=== PATIENT | female | born 1985 | race African-American/Black ===

== ENCOUNTER 2018-01-09 15:59 | Inpatient (IN) ==
[2018-01-09] MEDS ORDERED: LACTATED RINGERS 500 ML IV PRN (16:50)
[2018-01-09] MEDS ORDERED: LACTATED RINGERS 250 ML IV ONE (16:50)
[2018-01-09] MEDS ORDERED: ONDANSETRON 4 MG/2 ML VIAL IV PRN (16:50)
[2018-01-09] MEDS ORDERED: LACTATED RINGERS 1,000 ML IV SCH (17:00)
[2018-01-09] MEDS: OXYTOCIN/LR 20 UNIT/1,000 ML BAG IV SCH (17:07)
[2018-01-09] MEDS: AMPICILLIN INJ 2,000 MG in SODIUM CHLORIDE 0.9% 100 ML IV SCH ×2 (17:25→23:15)
[2018-01-09 17:40] LABS: Basophils % 0.4 % (0.0-0.8); Eosinophils # 0.1 10*3/uL (0.0-0.87); Eosinophils % 0.9 % (0.00-10.9); Hematocrit 30.8 VOL% (35.7-47.0); Hemoglobin 10.6 GM/DL (12.0-16.0); Immature Granulocytes % 0.4 %; Immature Granulocytes Absolute 0.03 #; Lymphocytes # 1.4 10*3/uL (1.4-4.0); Lymphocytes % 18.4 % (21.3-54.2); Mean Corpuscular HGB Conc 34.4 GM/DL (32-36); Mean Corpuscular Hemoglobin 28 PG (27-34); Mean Corpuscular Volume 82.6 FL (87-102); Monocytes # 0.5 10*3/uL (0.11-0.8); Monocytes % 6.9 % (1.7-12.7); Neutrophils # 5.5 10*3/uL (1.4-7.4); Platelet Count 256 T/CUMM (130-400); Red Blood Count 3.73 MC/CUMM (3.8-5.5); Red Cell Distribution Width 13.6 % (9.3-17.3); White Blood Count 7.6 T/CUMM (4-12)
[2018-01-09 18:18] LABS: Alanine Aminotransferase 32 U/L (13-56); Albumin 2.5 G/DL (3.4-5.0); Alkaline Phosphatase 183 U/L (45-117); Aspartate Amino Transferase 36 U/L (0-37); Bilirubin,Total < 0.39 MG/DL (0.2-1.0); Blood Urea Nitrogen 8 MG/DL (7-18); Glucose 84 MG/DL (74-106); Osmolality,Calculated 266.1 MOS/KG (273-304); Potassium 4.3 MMOL/L (3.5-5.1); Sodium 135 MMOL/L (136-145); Total Protein 7.2 G/DL (6.4-8.3); Uric Acid 5.7 MG/DL (2.6-6.0)
[2018-01-09 18:21] LABS: INR 0.9; PT Patient Result 9.4 SECS; Partial Thromboplastin Time 25.2 SECS (0-40)
[2018-01-09] MEDS: LABETALOL 100 MG TABLET PO SCH (20:35)
[2018-01-09] MEDS: BUTORPHANOL 2 MG/ML VIAL IV PRN (20:37)
[2018-01-09] MEDS ORDERED: LABETALOL 100 MG TABLET PO SCH (22:00)
[2018-01-09] MEDS ORDERED: LABETALOL 100 MG TABLET PO ONE (22:04)
[2018-01-10] MEDS: BUTORPHANOL 2 MG/ML VIAL IV PRN (00:56)
[2018-01-10] MEDS ORDERED: LIDOCAINE 1% 50 ML VIAL ONE (01:02)
[2018-01-10] MEDS ORDERED: miSOPROStol 200 MCG TABLET ONE (01:03)
[2018-01-10] MEDS ORDERED: CARBOPROST TROMETHAMINE 250 MCG/ML AMP IM ONE (01:03)
[2018-01-10] MEDS ORDERED: diphenhydrAMINE 50 MG/1 ML VIAL IV ONE (04:34)
[2018-01-10] MEDS ORDERED: WITCH HAZEL PADS 100/JAR TOP PRN (05:53)
[2018-01-10] MEDS ORDERED: DIPH/TET/ACEL PERT BOOSTER VACCINE 0.5 ML VIAL IM ONE (05:53)
[2018-01-10] MEDS ORDERED: BISACODYL 10 MG SUPP RECTAL PRN (05:53)
[2018-01-10] MEDS ORDERED: OXYTOCIN/LR 20 UNIT/1,000 ML BAG IV ONE (05:53)
[2018-01-10] MEDS ORDERED: LANOLIN 50% CREAM 0.3 OZ TUBE TOP PRN (05:53)
[2018-01-10] MEDS ORDERED: MEASLES/MUMPS/RUBELLA VACCINE 0.5 ML VIAL SUBCUT ONE (05:53)
[2018-01-10] MEDS ORDERED: ONDANSETRON 4 MG/2 ML VIAL IV PRN (05:53)
[2018-01-10] MEDS ORDERED: HYDROCORTISONE 2.5% RECTAL CREAM 30 GM TUBE TOP PRN (05:53)
[2018-01-10] MEDS ORDERED: ACETAMINOPHEN 325 MG TABLET PO PRN (05:53)
[2018-01-10] MEDS ORDERED: BENZOCAINE 20%/MENTHOL 0.5% SPRAY 56 GM CAN TOP PRN (05:53)
[2018-01-10] MEDS ORDERED: RHO(D) IMMUNE GLOBULIN 300 MCG SYRINGE IM ONE (05:53)
[2018-01-10] MEDS ORDERED: oxyCODONE/ACETAMINOPHEN 5-325 MG TABLET PO PRN (05:53)
[2018-01-10] MEDS: OXYTOCIN/LR 20 UNIT/1,000 ML BAG IV SCH (06:34)
[2018-01-10] MEDS: LABETALOL 100 MG TABLET PO SCH ×2 (09:07→20:46)
[2018-01-10] MEDS: IBUPROFEN 800 MG TABLET PO PRN ×2 (09:11→22:39)
[2018-01-10] MEDS ORDERED: LABETALOL 100 MG TABLET PO SCH (10:46)
[2018-01-10] MEDS: DOCUSATE SODIUM 100 MG CAPSULE PO SCH (20:46)
[2018-01-10] MEDS: oxyCODONE/ACETAMINOPHEN 5-325 MG TABLET PO PRN (22:40)
[2018-01-11] MEDS: IBUPROFEN 800 MG TABLET PO PRN ×3 (05:54→22:00)
[2018-01-11 06:53] LABS: Basophils % 0.3 % (0.0-0.8); Eosinophils # 0.1 10*3/uL (0.0-0.87); Eosinophils % 0.4 % (0.00-10.9); Hematocrit 22.3 VOL% (35.7-47.0); Immature Granulocytes % 0.5 %; Immature Granulocytes Absolute 0.08 #; Lymphocytes # 3.1 10*3/uL (1.4-4.0); Lymphocytes % 20.9 % (21.3-54.2); Mean Corpuscular HGB Conc 33.6 GM/DL (32-36); Mean Corpuscular Hemoglobin 29 PG (27-34); Mean Corpuscular Volume 84.8 FL (87-102); Mean Platelet Volume 12.1 FL (9.6-12.0); Monocytes # 0.9 10*3/uL (0.11-0.8); Monocytes % 6.3 % (1.7-12.7); Neutrophils # 10.5 10*3/uL (1.4-7.4); Neutrophils % 71.6 % (38.7-73.9); Platelet Count 226 T/CUMM (130-400); Red Cell Distribution Width 14.4 % (9.3-17.3)
[2018-01-11 06:56] LABS: White Blood Count 14.7 T/CUMM (4-12)
[2018-01-11 06:57] LABS: Hemoglobin 7.5 GM/DL (12.0-16.0); Red Blood Count 2.63 MC/CUMM (3.8-5.5)
[2018-01-11 07:13] LABS: Band Neutrophils 2 % (0-10); Lymphocytes 21 % (20-55); Platelet Estimate Normal; Segmented Neutrophils 73 % (50-85); Total Cells Counted 100
[2018-01-11] MEDS: FERROUS SULFATE 325 MG TABLET PO SCH ×2 (09:25→21:59)
[2018-01-11] MEDS: LABETALOL 100 MG TABLET PO SCH ×2 (09:25→22:00)
[2018-01-11] MEDS: DOCUSATE SODIUM 100 MG CAPSULE PO SCH ×2 (09:25→21:59)
[2018-01-11 11:47] LABS: Immature Granulocytes Absolute 0.07 #; Red Cell Distribution Width 14.2 % (9.3-17.3)
[2018-01-11 12:48] LABS: Basophils % 0.3 % (0.0-0.8); Eosinophils % 0.3 % (0.00-10.9); Hematocrit 21.8 VOL% (35.7-47.0); Hemoglobin 7.1 GM/DL (12.0-16.0); Immature Granulocytes % 0.6 %; Lymphocytes # 2.5 10*3/uL (1.4-4.0); Lymphocytes % 20.2 % (21.3-54.2); Mean Corpuscular HGB Conc 32.6 GM/DL (32-36); Mean Corpuscular Hemoglobin 28 PG (27-34); Mean Corpuscular Volume 86.9 FL (87-102); Mean Platelet Volume 11.2 FL (9.6-12.0); Monocytes # 0.7 10*3/uL (0.11-0.8); Monocytes % 5.4 % (1.7-12.7); Neutrophils # 9.1 10*3/uL (1.4-7.4); Neutrophils % 73.2 % (38.7-73.9); Platelet Count 215 T/CUMM (130-400); Red Blood Count 2.51 MC/CUMM (3.8-5.5); White Blood Count 12.4 T/CUMM (4-12)
[2018-01-12] MEDS: oxyCODONE/ACETAMINOPHEN 5-325 MG TABLET PO PRN (04:11)
[2018-01-12 06:51] LABS: Basophils # 0.1 10*3/uL (0.0-0.2); Basophils % 0.5 % (0.0-0.8); Eosinophils # 0.1 10*3/uL (0.0-0.87); Eosinophils % 1.3 % (0.00-10.9); Hematocrit 22.1 VOL% (35.7-47.0); Hemoglobin 7.2 GM/DL (12.0-16.0); Immature Granulocytes % 0.7 %; Immature Granulocytes Absolute 0.07 #; Lymphocytes # 2.6 10*3/uL (1.4-4.0); Lymphocytes % 25.4 % (21.3-54.2); Mean Corpuscular HGB Conc 32.6 GM/DL (32-36); Mean Corpuscular Hemoglobin 29 PG (27-34); Mean Corpuscular Volume 88.8 FL (87-102); Mean Platelet Volume 11.5 FL (9.6-12.0); Monocytes # 0.8 10*3/uL (0.11-0.8); Monocytes % 7.4 % (1.7-12.7); NRBC # 0.02 10*3/uL; Neutrophils # 6.6 10*3/uL (1.4-7.4); Neutrophils % 64.7 % (38.7-73.9); Platelet Count 217 T/CUMM (130-400); Red Blood Count 2.49 MC/CUMM (3.8-5.5); Red Cell Distribution Width 14.2 % (9.3-17.3); White Blood Count 10.2 T/CUMM (4-12)
[2018-01-12] MEDS: FERROUS SULFATE 325 MG TABLET PO SCH (08:59)
[2018-01-12] MEDS: LABETALOL 100 MG TABLET PO SCH (09:00)
[2018-01-12] MEDS: IBUPROFEN 800 MG TABLET PO PRN (09:01)
[2018-01-12] MEDS: DOCUSATE SODIUM 100 MG CAPSULE PO SCH (09:01)
[2018-01-12 12:33] VITALS: BP 119/75
== END 2018-01-12 14:30 | disposition home or self-care (01) | DRG 774 ==
LOC: N.LAB 15:59 → N.LD 16:09 → N.OB 01-10 10:25
PROVIDERS: ADMIT Specialist; ATTEND Specialist

== ENCOUNTER 2021-12-20 09:23 | Inpatient (IN) ==
[2021-12-20] MEDS ORDERED: FAMOTIDINE 20 MG/2 ML VIAL IV ONE (09:36)
[2021-12-20] MEDS ORDERED: OXYTOCIN/LR 20 UNIT/1,000 ML BAG IV ONE ×2 (09:36→11:27)
[2021-12-20] MEDS ORDERED: miSOPROStoL 200 MCG TABLET PO PRN (09:36)
[2021-12-20] MEDS ORDERED: ceFAZolin 3,000 MG in SYRINGE 1 EACH IV ONE (09:36)
[2021-12-20] MEDS ORDERED: CITRIC ACID/SODIUM CITRATE 30 ML UDCUP PO ONE (09:36)
[2021-12-20] MEDS ORDERED: TRANEXAMIC ACID 1,000 MG in SODIUM CHLORIDE 0.9% 100 ML IV PRN (09:36)
[2021-12-20] MEDS ORDERED: METHYLERGONOVINE 0.2 MG/1 ML AMP IM PRN (09:36)
[2021-12-20] MEDS ORDERED: CARBOPROST TROMETHAMINE 250 MCG/ML AMP IM PRN (09:36)
[2021-12-20] MEDS ORDERED: OXYTOCIN 10 UNIT/ML VIAL IM ONE (09:37)
[2021-12-20] MEDS ORDERED: OXYTOCIN/LR 30 UNIT/1,000 ML BAG IV ONE (09:37)
[2021-12-20] MEDS ORDERED: BUPIVACAINE SPINAL 0.75% 2 ML AMP SPINAL ONE (09:40)
[2021-12-20] MEDS ORDERED: buprenorphine HCL 0.3 MG/ML VIAL ONE (09:40)
[2021-12-20] MEDS ORDERED: miSOPROStoL 200 MCG TABLET ONE (09:51)
[2021-12-20 09:52] LABS: Basophils % 0.4 % (0.0-0.8); Eosinophils # 0.1 10*3/uL (0.0-0.87); Eosinophils % 1.2 % (0.00-10.9); Hematocrit 35.2 VOL% (35.7-47.0); Hemoglobin 11.8 GM/DL (12.0-16.0); Immature Granulocytes % 1.1 %; Immature Granulocytes Absolute 0.08 #; Lymphocytes # 1.7 10*3/uL (1.4-4.0); Lymphocytes % 23.2 % (21.3-54.2); Mean Corpuscular HGB Conc 33.5 GM/DL (32-36); Mean Corpuscular Volume 84.8 FL (87-102); Monocytes # 0.6 10*3/uL (0.11-0.8); Neutrophils % 66.1 % (38.7-73.9); Platelet Count 254 T/CUMM (130-400); Red Blood Count 4.15 MC/CUMM (3.8-5.5); Red Cell Distribution Width 13.9 % (9.3-17.3); White Blood Count 7.3 T/CUMM (4-12)
[2021-12-20] MEDS ORDERED: METHYLERGONOVINE 0.2 MG/1 ML AMP ONE (09:52)
[2021-12-20] MEDS ORDERED: CARBOPROST TROMETHAMINE 250 MCG/ML AMP IM ONE (09:52)
[2021-12-20] MEDS ORDERED: LACTATED RINGERS 1,000 ML IV SCH ×2 (10:00→11:30)
[2021-12-20 10:10] LABS: Alanine Aminotransferase 30 U/L (13-56); Albumin 2.3 G/DL (3.4-5.0); Alkaline Phosphatase 219 U/L (45-117); Aspartate Amino Transferase 37 U/L (0-37); Bilirubin,Total < 0.39 MG/DL (0.20-1.00); Blood Urea Nitrogen 8 MG/DL (7-18); Calcium 9.4 MG/DL (8.5-10.1); Carbon Dioxide 21 MMOL/L (21-32); Chloride 107 MMOL/L (98-107); Glucose 108 MG/DL (74-106); Osmolality,Calculated 275.5 MOS/KG (273-304); Potassium 4.1 MMOL/L (3.5-5.1); Sodium 139 MMOL/L (136-145); Total Protein 7.2 G/DL (6.4-8.2)
[2021-12-20] MEDS ORDERED: fentaNYL 100 MCG/2 ML VIAL ONE ×2 (10:11→10:32)
[2021-12-20] MEDS ORDERED: SUCCINYLCHOLINE 200 MG/10 ML VIAL ONE (10:11)
[2021-12-20] MEDS ORDERED: propofoL 200 MG/20 ML VIAL IV ONE (10:11)
[2021-12-20] MEDS ORDERED: PHENYLEPHRINE 1 MG/10 ML SYRINGE IV ONE (10:27)
[2021-12-20] MEDS ORDERED: ONDANSETRON 4 MG/2 ML VIAL ONE (10:27)
[2021-12-20] MEDS ORDERED: SEVOFLURANE 1 UNIT/15 MINUTE INH ONE (10:27)
[2021-12-20 11:16] LABS: Cord Arterial Blood HCO3 27.3 MMOL/L
[2021-12-20 11:19] LABS: Cord Venous Blood PCO2 58.1 MMHG
[2021-12-20 11:20] LABS: Cord Venous Blood HCO3 24.9 MMOL/L
[2021-12-20] MEDS ORDERED: HYDROmorphone 1 MG/1 ML SYRINGE IV PRN ×2 (11:20→17:35)
[2021-12-20] MEDS ORDERED: ACETAMINOPHEN 325 MG TABLET PO PRN (11:27)
[2021-12-20] MEDS ORDERED: ONDANSETRON 4 MG/2 ML VIAL IV PRN (11:27)
[2021-12-20] MEDS ORDERED: RHO(D) IMMUNE GLOBULIN 300 MCG SYRINGE IM ONE (11:27)
[2021-12-20] MEDS ORDERED: HYDROmorphone 1 MG/1 ML SYRINGE IV ONE (12:38)
[2021-12-20] MEDS ORDERED: NIFEdipine 10 MG CAPSULE PO ONE ×2 (12:58→13:26)
[2021-12-20 13:55] LABS: Hematocrit 32.5 VOL% (35.7-47.0); Hemoglobin 10.8 GM/DL (12.0-16.0)
[2021-12-20] MEDS ORDERED: HYDROmorphone 1 MG/1 ML SYRINGE SUBCUT PRN (17:19)
[2021-12-20] MEDS: ceFAZolin 2,000 MG/50 ML DUPLEX IV SCH (17:43)
[2021-12-20 18:03] LABS: Basophils % 0.2 % (0.0-0.8); Eosinophils % 0.1 % (0.00-10.9); Hematocrit 31.5 VOL% (35.7-47.0); Hemoglobin 10.4 GM/DL (12.0-16.0); Immature Granulocytes % 0.7 %; Immature Granulocytes Absolute 0.09 #; Lymphocytes # 1.4 10*3/uL (1.4-4.0); Lymphocytes % 10.3 % (21.3-54.2); Mean Corpuscular Volume 86.5 FL (87-102); Mean Platelet Volume 12.1 FL (9.6-12.0); Monocytes # 0.9 10*3/uL (0.11-0.8); Monocytes % 6.4 % (1.7-12.7); Neutrophils % 82.3 % (38.7-73.9); Platelet Count 242 T/CUMM (130-400); Red Blood Count 3.64 MC/CUMM (3.8-5.5); Red Cell Distribution Width 13.7 % (9.3-17.3); White Blood Count 13.8 T/CUMM (4-12)
[2021-12-20] MEDS: DOCUSATE SODIUM 100 MG CAPSULE PO SCH (21:38)
[2021-12-21] MEDS: ceFAZolin 2,000 MG/50 ML DUPLEX IV SCH (01:37)
[2021-12-21] MEDS: IBUPROFEN 800 MG TABLET PO PRN ×3 (02:44→23:34)
[2021-12-21 06:31] LABS: Basophils % 0.2 % (0.0-0.8); Eosinophils % 0.3 % (0.00-10.9); Hematocrit 28.2 VOL% (35.7-47.0); Hemoglobin 9.4 GM/DL (12.0-16.0); Immature Granulocytes % 0.5 %; Immature Granulocytes Absolute 0.05 #; Lymphocytes # 1.5 10*3/uL (1.4-4.0); Lymphocytes % 14.7 % (21.3-54.2); Mean Corpuscular HGB Conc 33.3 GM/DL (32-36); Mean Corpuscular Volume 87.3 FL (87-102); Mean Platelet Volume 11.9 FL (9.6-12.0); Monocytes # 0.8 10*3/uL (0.11-0.8); Monocytes % 7.3 % (1.7-12.7); Platelet Count 214 T/CUMM (130-400); Red Blood Count 3.23 MC/CUMM (3.8-5.5); White Blood Count 10.3 T/CUMM (4-12)
[2021-12-21] MEDS: MULTIVITAMIN (PRENATAL) TABLET PO SCH (08:44)
[2021-12-21] MEDS: DOCUSATE SODIUM 100 MG CAPSULE PO SCH ×2 (08:44→20:45)
[2021-12-21] MEDS: ENOXAPARIN 40 MG/0.4 ML SYRINGE SUBCUT SCH (20:31)
[2021-12-21] MEDS ORDERED: MAGNESIUM CITRATE 300 ML BOTTLE PO ONE (20:37)
[2021-12-21] MEDS: SIMETHICONE CHEW 80 MG TABLET PO PRN (20:45)
[2021-12-21] MEDS: METOCLOPRAMIDE 10 MG TABLET PO SCH (20:46)
[2021-12-22] MEDS: METOCLOPRAMIDE 10 MG TABLET PO SCH ×4 (04:02→23:23)
[2021-12-22] MEDS ORDERED: BISACODYL 10 MG SUPP RECTAL PRN (04:05)
[2021-12-22] MEDS: SIMETHICONE CHEW 80 MG TABLET PO PRN ×2 (06:07→19:35)
[2021-12-22] MEDS: MULTIVITAMIN (PRENATAL) TABLET PO SCH (08:41)
[2021-12-22] MEDS: DOCUSATE SODIUM 100 MG CAPSULE PO SCH ×3 (08:42→23:23)
[2021-12-22] MEDS: FERROUS SULFATE 325 MG TABLET PO SCH (08:42)
[2021-12-22] MEDS: MAGNESIUM HYDROXIDE SUSP 30 ML UDCUP PO PRN ×2 (08:43→19:36)
[2021-12-22] MEDS: IBUPROFEN 800 MG TABLET PO PRN (19:35)
[2021-12-22] MEDS: ENOXAPARIN 40 MG/0.4 ML SYRINGE SUBCUT SCH (21:04)
[2021-12-23] MEDS: METOCLOPRAMIDE 10 MG TABLET PO SCH ×4 (03:06→20:57)
[2021-12-23] MEDS: MULTIVITAMIN (PRENATAL) TABLET PO SCH (09:48)
[2021-12-23] MEDS: DOCUSATE SODIUM 100 MG CAPSULE PO SCH ×2 (09:48→20:57)
[2021-12-23] MEDS: FERROUS SULFATE 325 MG TABLET PO SCH (09:48)
[2021-12-23] MEDS: atenoloL 25 MG TABLET PO SCH (11:19)
[2021-12-23] MEDS: ENOXAPARIN 40 MG/0.4 ML SYRINGE SUBCUT SCH (21:12)
[2021-12-24] MEDS: METOCLOPRAMIDE 10 MG TABLET PO SCH (05:54)
[2021-12-24 07:26] VITALS: BP 139/83
[2021-12-24] MEDS: FERROUS SULFATE 325 MG TABLET PO SCH (09:02)
[2021-12-24] MEDS: MULTIVITAMIN (PRENATAL) TABLET PO SCH (09:02)
[2021-12-24] MEDS: atenoloL 25 MG TABLET PO SCH (09:03)
[2021-12-24] MEDS ORDERED: DIPH/TET/ACEL PERT BOOSTER VACCINE 0.5 ML VIAL IM ONE (11:36)
== END 2021-12-24 12:35 | disposition home or self-care (01) | DRG 788 ==
LOC: N.LD 09:23 → N.OB 15:10
PROVIDERS: ADMIT Obstetrics & Gynecology; ATTEND Obstetrics & Gynecology
PROC: LDCSECT (ICD-10-PCS; 2021-12-20 10:00)